=== PATIENT | female | born 2000 | race Caucasian/White ===

== ENCOUNTER 2023-07-24 23:38 | Emergency (ER) | payer OTHER ==
[~2023-07-24] VITALS: Ht 177.8 cm; Wt 72.6 kg
[2023-07-25] MEDS ORDERED: AMOXICILLIN-CLAVUL 875-125MG TABLET PO ONE (00:15)
[2023-07-25] MEDS ORDERED: HYDROCODONE/APAP 10-325 MG TABLET PO ONE (00:15)
[2023-07-25] MEDS ORDERED: HYDROCODONE/APAP 10-325 MG TABLET ONE (00:31)
[2023-07-25 00:46] LABS: *URINE HCG, QUAL NEGATIVE (NEGATIVE)
[2023-07-25] MEDS ORDERED: AMOX-430 PO (01:06)
[2023-07-25] MEDS ORDERED: HYDR-4209 PO (01:06)
[2023-07-25 01:32] VITALS: BP 103/63; TEMP 98.6; O2SAT 98
== END 2023-07-25 01:20 | disposition home or self-care (01) ==
LOC: ER 23:41 → EDBD 23:41 → ER 07-25 01:20
DX: R51.9 Headache, unspecified (principal); J32.9 Chronic sinusitis, unspecified; K02.9 Dental caries, unspecified; Z79.1 Long term (current) use of non-steroidal anti-inflammatories (NSAID); Z79.899 Other long term (current) drug therapy
CPT/HCPCS: 84703; A4606; A4663